=== PATIENT | female | born 1950 | race Caucasian/White ===

== ENCOUNTER → 2019-05-03 12:55 | Outpatient (BNVA) | payer MEDICARE, OTHER, SELFPAY | PROVIDERS: Family Provider Nurse Practitioner Family; PCP Nurse Practitioner Family; Referring Provider Nurse Practitioner Family; Visit Provider Internal Medicine Rheumatology | DX: L40.0 Psoriasis vulgaris (principal); L43.8 Other lichen planus | CPT/HCPCS: 99203; 99204 ==

== ENCOUNTER → 2019-07-12 09:09 | Outpatient (BNVA) | payer MEDICARE, OTHER, SELFPAY | PROVIDERS: Family Provider Nurse Practitioner Family; PCP Urology; Visit Provider Nurse Practitioner | DX: N39.0 Urinary tract infection, site not specified (principal); E03.9 Hypothyroidism, unspecified; R53.83 Other fatigue | CPT/HCPCS: 80053; 81001; 83540; 84439; 84443; 84481; 85025 ==

== ENCOUNTER → 2019-07-21 08:00 | Outpatient (BNVA) | payer MEDICARE, OTHER, SELFPAY | PROVIDERS: Family Provider Nurse Practitioner Family; PCP Urology; Visit Provider Nurse Practitioner Family | DX: N39.0 Urinary tract infection, site not specified (principal) | CPT/HCPCS: 80053; 81001; 87077; 87086; 87186 ==

== ENCOUNTER → 2019-08-09 15:11 | Outpatient (BNVA) | payer MEDICARE, OTHER, SELFPAY | PROVIDERS: Family Provider Nurse Practitioner Family; PCP Nurse Practitioner Family; Visit Provider Urology | DX: N39.0 Urinary tract infection, site not specified (principal) | CPT/HCPCS: 81001 ==

== ENCOUNTER 2019-09-08 08:41 | Outpatient (CLI) | payer MEDICARE, OTHER, SELFPAY ==
--- NOTE | 2019-09-08 08:55 | MM_ITS ---
WS: [id number] SCREENING DIGITAL MAMMOGRAM WITH CAD HISTORY: SCREENING COMPARISON: 01/05/2018 Bilateral CC and MLO views submitted. Computer aided detection analyzed. Breast composition: The breasts are almost entirely fatty. No suspicious masses, microcalcifications or architectural distortion. MM/[place] [id number] IMPRESSION: BI-RADS: 1-Negative FOLLOW UP: 1 Year Follow-up
== END 2019-09-08 08:42 | disposition home or self-care (01) ==
LOC: RADSHAW 08:46
PROVIDERS: PCP Nurse Practitioner Family; Visit Provider Nurse Practitioner Family
DX: Z12.31 Encounter for screening mammogram for malignant neoplasm of breast (principal)
CPT/HCPCS: 77067

== ENCOUNTER 2020-09-17 12:43 | Outpatient (CLI) | payer MEDICARE, OTHER, SELFPAY ==
--- NOTE | 2020-09-17 12:54 | MM_ITS ---
WS: [id number] BILATERAL DIGITAL SCREENING MAMMOGRAPHY WITH CAD CLINICAL INFORMATION: SCREEN HISTORY: Screening mammogram. No current complaints. COMPARISON: September 08, 2019 TECHNIQUE: Bilateral CC and MLO views. FINDINGS: Scattered fibroglandular densities bilaterally. No suspicious focal mass, asymmetry, calcifications, or architectural distortion. No evidence of malignancy. MM/[place] [id number] IMPRESSION: BI-RADS: 1-Negative FOLLOW UP: 1 Year Follow-up Recommend return to annual screening mammography.
--- NOTE | 2020-09-17 13:45 | XR_ITS ---
WS: [id number] DEXA (DUAL ENERGY X-RAY ABSORPTIOMETRY) Bone mineral density was performed using a Mocoplex machine. HISTORY: Asymptomatic MENOPAUSAL STATE COMPARISON: None available. Lumbar spine BMD (L1-L4): 1.124 g/cm2 T score: -0.5 Z score: 1.3 Total hip BMD: Left: 0.858 g/cm2. T score: -1.2 Z score: 0.3 Right: 0.841 g/cm2. T score: -1.3 Z score: 0.2 10 year probability of a major osteoporotic fracture is 10%. XR/XR DEXA axial skeleton* [id number] IMPRESSION: OSTEOPENIA based upon the WHO classification for females.
== END 2020-09-17 12:44 | disposition home or self-care (01) ==
LOC: RADSHAW 12:45
PROVIDERS: PCP Nurse Practitioner Family; Visit Provider Nurse Practitioner Family
DX: Z12.31 Encounter for screening mammogram for malignant neoplasm of breast (principal); Z78.0 Asymptomatic menopausal state; M85.88 Other specified disorders of bone density and structure, other site
CPT/HCPCS: 77067; 77080

== ENCOUNTER → 2021-06-13 11:41 | Outpatient (BNVA) | payer MEDICARE, OTHER, SELFPAY | PROVIDERS: PCP Nurse Practitioner Family; Visit Provider Surgery | DX: Z20.822 Contact with and (suspected) exposure to COVID-19 (principal) | CPT/HCPCS: 87635 ==

== ENCOUNTER 2021-06-20 06:27 | Day surgery (SDC) | payer MEDICARE, OTHER, SELFPAY ==
[2021-06-18 11:23] VITALS: BMI 23.0
--- NOTE | 2021-06-20 07:11 | P.ANESASSM_ITS ---
Pre-Anesthetic Assessment Height/Weight: Height 1.6 m Weight 58.967 kg Operation Date: 06/20/21 08:00 Proposed Procedures p Colonoscopy 67956/screebubg Z12.11(Not Applicable) - Pepito Raymond MD Familial anesthetic complications: None Was Beta Javier taken within 24 hours: N/A Was Clonidine taken within 24 hours: N/A Last intake: 06/19/2021 Social No alcohol and No tobacco Exam alert, oriented x 3, clear to auscultation bilaterally and regular rate & rhythm Airway Submandibular: within normal limits Cervical ROM: within normal limits Mallampati: Class II Dentition: full History/ROS No significant complaints Pulmonary None reported CV/HEM None reported Cystocele Hepatic None reported GI None reported Metabolic Thyroid Disease (Hypothyroid ) Musc/skel Plaque psoriasis Neuropsych None reported Anesthetic Plan ASA status: 2 Anesthesia: Anesthesia Evaluation, General and MAC Other: I discussed with the patient risks, goals, and benefits of MAC and general anesthesia. We discussed spectrum of MAC anesthesia including conversion to general as well as possibility of recall of intraoperative stimuli including discomfort/pain. Patient agrees to proceed with MAC. Risk of > 500 ml blood loss (7ml/kg in children): No Medications/Allergies Home Medications Medication Instructions Recorded Confirmed Last Taken Type betamethasone dipropionate 0.05 % 1 applic TOPICAL QDAY 05/03/19 06/18/21 Unknown History topical ointment biotin 5,000 mcg sublingual tablet 5,000 mcg SUBLINGUAL QDAY 05/03/19 06/18/21 Unknown History citalopram 40 mg tablet 40 mg PO QDAY 06/18/21 06/18/21 Unknown History cranberry conc 250 mg-vit C 30 1 tab PO DAILY 06/18/21 06/18/21 Unknown History mg-Bacillus coagulans 3.5 mg tablet ([facility]) levothyroxine 25 mcg tablet 37.5 mcg PO DAILY 06/18/21 06/18/21 Unknown History Allergies Allergy/AdvReac Type Severity Reaction Status Date / Time No Known Allergies Allergy Verified 06/20/21 07:11 [facility] Anesthesia Medical History Cystocele 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
[2021-06-20 07:14] VITALS: BP 142/86; PULSE 92; RESP 20; TEMP 36.6; O2SAT 96
[2021-06-20] MEDS: sodium chloride 0.9% 1,000 ML 30 ML IV (07:19)
--- NOTE | 2021-06-20 07:26 | P.HP_ITS ---
Same Day Surgery H&P Indication for Procedure/HPI DATE OF PROCEDURE: June 20, 2021 CHIEF COMPLAINT/INDICATIONFOR SURGICAL PROCEDURE: When I wipe there is blood PREOP DIAGNOSIS: Screening colonoscopy PLANNED PROCEDURE: Operation Date: 06/20/21 08:00 Proposed Procedures p Colonoscopy 81109/brian Z12.11(Not Applicable) - Pepito Raymond MD This is a pleasant 70-year-old female patient presents to my practice for repeat screening colonoscopy. Patient had twice this procedure before last one was 2005 and no polyps were found. Denies any history of colon cancer but she does report on wiping she does encounter some blood. And she is worried that she may have an anal cancer. Otherwise she denies any other constitutional complaints. ROS All systems have been reviewed negative except as per the above or per problem list Medications/Allergies* Home Medications Medication Instructions Recorded Confirmed Type betamethasone dipropionate 0.05 % 1 applic TOPICAL QDAY 05/03/19 06/18/21 History topical ointment biotin 5,000 mcg sublingual tablet 5,000 mcg SUBLINGUAL QDAY 05/03/19 06/18/21 History citalopram 40 mg tablet 40 mg PO QDAY 06/18/21 06/18/21 History cranberry conc 250 mg-vit C 30 1 tab PO DAILY 06/18/21 06/18/21 History mg-Bacillus coagulans 3.5 mg tablet ([facility]) levothyroxine 25 mcg tablet 37.5 mcg PO DAILY 06/18/21 06/18/21 History Allergies/Adverse Reactions Allergy/AdvReac Type Severity Reaction Status Date / Time No Known Allergies Allergy Verified 06/20/21 07:51 Current Medications: Generic Name Dose Route Start Last Admin Trade Name Freq PRN Reason Stop Dose Admin Sodium Chloride 1,000 mls @ 30 mls/hr 06/20/21 07:00 06/20/21 07:19 Sodium Chloride 0.9% IV 06/21/21 06:59 30 mls/hr .Q24H SEAN Administration Pertinent History/Comorbid Conditions* Medical History (Updated 07/14/19 @ 08:50 by DIMA Kidd) Cystocele 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 Hypercholesterolemia Hypothyroid Iron deficiency Labial lesion Mixed incontinence Plaque psoriasis Recurrent UTI Surgical History (Updated 07/14/19 @ 08:50 by DIMA Kidd) History of back surgery History of bladder repair surgery Family History (Updated 05/06/19 @ 16:59 by SETH Owens) Diabetes CAD (coronary artery disease) Chronic kidney disease (CKD) Cancer Stroke Social History Smoking and tobacco status: former smoker Alcohol intake: never Adopted: No Caregiver/support person: No Lives independently: No Household members: spouse Marital status: Current occupational status: unemployed History of recent travel: No Pertinent Exam Findings alert, oriented x 3, clear to auscultation bilaterally, regular rate & rhythm and procedure specific exam findings (Abdominal examination nontender nondistended soft) Recommendations Surgery/Procedure today (Screening colonoscopy) Other Plans: Plan of care; After thorough history and physical examination and reviewing the chart, plan to perform screening colonoscopy. I discussed with the patient in details the risks,benefits,alternatives and indications.The risk of aspiration, bleeding, soft tissue injury, perforation of the colon and other potential concomitant complications were explained to the patient in details,also the potential need for Laproscoy/Laparotomy to repair any related complications including but not limited to colectomy and or Closotomy.The patient understood this well and did agree to proceed. Rationale was carefully and clearly discussed with the patient.Appropriate informed consent have been reviewed and signed All questions have been answered and all concerns have been addressed to patient's satisfaction. Verbal and written Instructions were given to the patient for colonoscopy prep Coding Level of Care Code Acute Electrical Construction Project Manager for Sophie Coyle
[2021-06-20 08:18] VITALS: BP 109/78; PULSE 78; RESP 16; TEMP 36.4; O2SAT 98
[2021-06-20 08:36] VITALS: BP 142/86; PULSE 82; RESP 18; O2SAT 95
--- NOTE | 2021-06-20 12:31 | ANE.PACU2 ---
Inpatient post-anesthesia follow up: Airway intact: Yes Vital signs: Temperature 97.5 F Pulse Rate 82 Respiratory Rate 18 Blood Pressure 142/86 Pulse Oximetry 95 Oxygen Delivery Me thod Room Air Oxygen Flow Rate 4 Fraction of Inspir ed Oxygen Hydration adequate: Yes Nausea and vomiting: No Pain level: 1 Mental status: Baseline
== END 2021-06-20 08:50 | disposition home or self-care (01) ==
PROVIDERS: PCP Nurse Practitioner Family; Visit Provider Surgery
PROC: 0DJD8ZZ Inspection of Lower Intestinal Tract, Via Natural or Artificial Opening Endoscopic (ICD-10-PCS; CPT 45378; principal; 2021-06-20 08:00)
DX: K62.5 Hemorrhage of anus and rectum (principal); E78.00 Pure hypercholesterolemia, unspecified; E03.9 Hypothyroidism, unspecified; Z87.891 Personal history of nicotine dependence; D12.8 Benign neoplasm of rectum; K57.30 Diverticulosis of large intestine without perforation or abscess without bleeding
CPT/HCPCS: 45385; 88305; J2704; J7030

== ENCOUNTER 2021-07-23 08:27 | Outpatient (CLI) | payer MEDICARE, OTHER, SELFPAY ==
--- NOTE | 2021-07-23 08:52 | MM_ITS ---
WS: [id number] DIAGNOSTIC BILATERAL 3D TOMOSYNTHESIS DIGITAL MAMMOGRAM WITH CAD RIGHT breast ultrasound, limited HISTORY: Axillary pain, greatest on the RIGHT. COMPARISON: 09/17/2020 and 09/08/2019 TECHNIQUE: Bilateral craniocaudad, mediolateral oblique, and mediolateral views are submitted. Spot c ompression RIGHT MLO. Computer aided detection utilized. Breast composition: The breasts are almost entirely fatty. No suspicious masses or calcifications. No distortion. Marker in the area of pain and discomfort is placed towards the RIGHT axillary tail. RIGHT breast ultrasound, limited. Benign lymph nodes in the RIGHT axilla. No suspicious mass or distortion. MM/[place] [id number] IMPRESSION: BI-RADS: 2-Benign FOLLOW UP: 1 Year Follow-up
== END 2021-07-23 08:28 | disposition home or self-care (01) ==
LOC: RAD 08:31
PROVIDERS: PCP Nurse Practitioner Family; Visit Provider Nurse Practitioner Family
DX: M79.621 Pain in right upper arm (principal); M79.622 Pain in left upper arm
CPT/HCPCS: 76642; 77062

== ENCOUNTER 2021-07-31 13:30 | Outpatient (CLI) | payer MEDICARE, OTHER, SELFPAY ==
--- NOTE | 2021-07-31 13:41 | CT_ITS ---
WS: [id number] LDCT LUNG CANCER SCREENING TECHNIQUE: Noncontrast CT of the chest with coronal and sagittal reformatted images. CLINICAL INFORMATION: HX OF TOBACCO USE DLP: 77.59 mGy.cm DIvol: Mean CTDIvol: 1.60 (mGy) All CT scans at [facility] use at least one of these dose optimization techniques: automat ed exposure control; mA and/or kV adjustment per patient size (includes targeted exams where dose is matched to clinical indication); or iterative reconstruction. FINDINGS: Moderate chronic emphysematous changes. No acute pulmonary infiltrates. Bulla formation in the LEFT l ower lobe. Subsegmental atelectasis/fibrosis RIGHT lower lobe medially. No suspicious pulmonary paren chymal abnormalities. Normal thyroid gland. No mediastinal or hilar lymphadenopathy. Aortic calcification. Normal caliber t horacic aorta. Coronary calcification. Small esophageal hiatal hernia. No axillary lymphadenopathy. G allbladder wall calcification partially visualized. Calcified gallstone measuring 8 mm near the neck of the gallbladder appears similar to 2012. Gallbladder wall calcification can be seen with porcelain gallbladder and chronic cholecystitis. Gallbladder wall calcification progressed compared to 2012. Adrenal glands are normal. No axillary lymphadenopathy. Hypertrophic changes thoracic spine with disc osteophyte complexes in the mid thoracic spine. CT/CT lung screening [id number] IMPRESSION: Calcified gallbladder with 8 mm stone near the gallbladder neck. Ga llbladder wall calcification is progressed compared to 2012. This can be furthe r evaluated with CT abdomen pelvis. Gallbladder wall calcification has been ass ociated with increased risk of malignancy. LUNG-RADS: 1S-Negative with Significant Findings FOLLOW UP: 12 Month: Continue annual screening with LDCT
== END 2021-07-31 13:31 | disposition home or self-care (01) ==
LOC: RAD 13:31
PROVIDERS: PCP Nurse Practitioner Family; Visit Provider Nurse Practitioner Family
DX: R06.02 Shortness of breath (principal); R05.8 Other specified cough; Z80.1 Family history of malignant neoplasm of trachea, bronchus and lung; Z87.891 Personal history of nicotine dependence
CPT/HCPCS: 71271

== ENCOUNTER → 2021-08-21 14:32 | Outpatient (BNVA) | payer MEDICARE, OTHER, SELFPAY | PROVIDERS: PCP Nurse Practitioner Family; Referring Provider Nurse Practitioner Family; Visit Provider Surgery | DX: K80.20 Calculus of gallbladder without cholecystitis without obstruction (principal) | CPT/HCPCS: 99213 ==

== ENCOUNTER 2021-08-29 13:05 | Outpatient (CLI) | payer MEDICARE, OTHER, SELFPAY ==
[2021-08-29 13:28] LABS: Basophils # 0.1 10^3/uL (0.0-0.1); Basophils % 0.4 %; Eosinophils # 0.3 10^3/uL (0.0-0.8); Eosinophils % 2.4 %; Hematocrit 44.8 % (37.0-47.0); Hemoglobin 14.4 g/dL (11.5-15.3); Lymphocytes # 4.6 10^3/uL (0.8-4.8); Mean Corpuscular HGB Conc 32.1 g/dL (30.0-36.0); Mean Corpuscular Hemoglobin 30.1 pg (28.0-34.0); Mean Corpuscular Volume 93.7 fl (81-99); Mean Platelet Volume 10.2 fL (7.4-10.4); Monocytes # 0.8 10^3/uL (0.2-0.9); Monocytes % 6.7 %; Neutrophils # 6.53 10^3/uL (1.8-7.7); Neutrophils % 52.5 %; Nucleated Red Blood Cells % 0 %; Platelet Count 322 10^3/cmm (130-400); Red Blood Count 4.78 10^6/uL (4.1-5.3); Red Cell Distribution Width 12.4 % (12.1-15.1); White Blood Count 12.5 10^3/uL (4.0-10.0)
--- NOTE | 2021-08-29 13:30 | US_ITS ---
WS: [id number] RIGHT UPPER QUADRANT ULTRASOUND HISTORY: calcified gallbladder COMPARISON: None available. Liver: 13.3 cm in length. Normal size liver. Surface of the liver is irregular and nodular. No mass o r bile duct dilatation. Portal Vein: Normal hepatopetal flow with monophasic waveform. Gallbladder: Normally distended gallbladder. There is a moderate amount of calcification within the w all of the gallbladder. There is also a stone noted at the neck of the gallbladder. These findings we re also described on 07/31/2021 CT. No mobile stones are evident within the gallbladder. No gallbladde r wall thickening or edema. CBD: 0.3 cm Pancreas: Normal size and echogenicity. Right kidney: 8.8 cm in length. Normal size and echogenicity. No hydronephrosis or mass. Aorta and IVC: Unremarkable abdominal aorta and IVC. No ascites. US/US gall bladder [id number] IMPRESSION: 1. Partially calcified gallbladder wall with a stone near the gallbladder neck . These findings were also seen on the prior CT of 07/31/2021. At this time ther e is no evidence for acute cholecystitis or bile duct dilatation. 2. Cirrhosis.
[2021-08-29 13:48] LABS: Alanine Aminotransferase 31 U/L (0-33); Albumin Level 4.4 g/dL (3.5-5.2); Alkaline Phosphatase 55 IU/L (35-105); Anion Gap 13.5 (5-19); Aspartate Amino Transferase 30 U/L (0-32); Blood Urea Nitrogen 19 mg/dL (8-23); Calcium 9.3 mg/dL (8.5-10.5); Carbon Dioxide 28 mmol/L (22-29); Chloride 102 mmol/L (98-107); Globulin 3.5 g/dL (1.3-4.6); Glucose 84 mg/dL (65-115); Osmolality Calculated 289 mOsm/kg (285-295); Potassium 4.5 mmol/L (3.5-5.1); Sodium 139 mmol/L (136-145); Total Bilirubin 0.4 mg/dL (0.15-1.2); Total Protein 7.9 g/dL (6.6-8.7)
== END 2021-08-29 13:06 | disposition home or self-care (01) ==
LOC: RAD 13:08
PROVIDERS: PCP Nurse Practitioner Family; Visit Provider Surgery
DX: K82.8 Other specified diseases of gallbladder (principal); K82.9 Disease of gallbladder, unspecified; K80.80 Other cholelithiasis without obstruction
CPT/HCPCS: 76705; 80053; 85025

== ENCOUNTER → 2021-09-05 09:28 | Outpatient (BNVA) | payer MEDICARE, OTHER, SELFPAY | PROVIDERS: PCP Nurse Practitioner Family; Visit Provider Surgery | DX: D50.9 Iron deficiency anemia, unspecified (principal) | CPT/HCPCS: 85610; 85730 ==

== ENCOUNTER 2021-09-16 07:44 | Day surgery (SDC) | payer MEDICARE, OTHER, SELFPAY ==
[2021-09-13 11:03] VITALS: BMI 22.4
[2021-09-16] VITALS (14 sets, daily range): BP systolic 125–173; BP diastolic 57–91; PULSE 69–86; RESP 14–27; TEMP 36.3–37; O2SAT 92–100
[2021-09-16] MEDS: heparin 5,000 unit/mL INJ 1 mL 2000 UNIT SUBCUT (08:19)
[2021-09-16] MEDS: sodium chloride 0.9% 1,000 ML 30 ML IV (08:21)
[2021-09-16] MEDS: acetaminophen 1,000 MG/100 ML PIGGYBACK 400 MG IV (08:21)
--- NOTE | 2021-09-16 08:33 | P.ANESASSM_ITS ---
Pre-Anesthetic Assessment Height/Weight: Height 1.6 m Weight 57.606 kg Temp Pulse Resp BP Pulse Ox 97.4 F L 79 16 145/78 95 09/16/21 08:08 09/16/21 08:08 09/16/21 08:08 09/16/21 08:08 09/16/21 08:08 Preop Diagnosis: Symptomatic cholelithiasis Operation Date: 09/16/21 09:20 Proposed Procedures p Laparoscopic Cholecystectomy 66933/K82.9(Not Applicable) - Pepito Raymond MD Familial anesthetic complications: None Was Beta Javier taken within 24 hours: N/A Was Clonidine taken within 24 hours: N/A Last intake: Intake Last Liquid Date 09/15/21 Last Liquid Time 18:30 Last Solid Date 09/06/21 Social No alcohol and No tobacco Exam alert, oriented x 3, clear to auscultation bilaterally and regular rate & rhythm Airway Submandibular: within normal limits Cervical ROM: within normal limits Mallampati: Class II Dentition: partials CV/HEM Anemia Metabolic Thyroid Disease Anesthetic Plan ASA status: 2 Anesthesia: General Medications/Allergies Home Medications Medication Instructions Recorded Confirmed Last Taken Type citalopram 40 mg tablet 40 mg PO QDAY 06/18/21 09/16/21 09/15/21 History cranberry conc 250 mg-vit C 30 1 tab PO DAILY 06/18/21 09/16/21 09/15/21 History mg-Bacillus coagulans 3.5 mg tablet ([facility]) levothyroxine 25 mcg tablet 37.5 mcg PO DAILY 06/18/21 09/16/21 09/15/21 History Allergies Allergy/AdvReac Type Severity Reaction Status Date / Time No Known Allergies Allergy Verified 09/16/21 07:54 Current Medications Generic Name Dose Route Start Last Admin Trade Name Freq PRN Reason Stop Dose Admin Sodium Chloride 1,000 mls @ 30 mls/hr 09/16/21 08:00 09/16/21 08:21 Sodium Chloride 0.9% IV 09/17/21 07:59 30 mls/hr .Q24H SEAN Administration PFSH Anesthesia Medical History Cystocele 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
--- NOTE | 2021-09-16 08:38 | W.PM.OPSUD ---
Surgery/Procedure H&P Update DATE OF PROCEDURE: September 16, 2021 DATE H&P PERFORMED: 08/21/21 H&P UPDATE INFORMATION: I have reviewed H&P completed within last 30 days, I have examined patient prior to procedure and Changes to prior documentation as noted here (current weight 125 ibs) PREOP DIAGNOSIS: Symptomatic cholelithiasis PRIMARY INDICATION FOR PROCEDURE: The same PLANNED PROCEDURE: Operation Date: 09/16/21 09:20 Proposed Procedures p Laparoscopic Cholecystectomy 29171/K82.9(Not Applicable) - Pepito Raymond MD
[2021-09-16] MEDS: ampicillin-sulbactam 3 GM in sodium chloride 0.9% (plus) 50 ML IV (09:01)
[2021-09-16] MEDS: lidocaine 2% INJ 20 mL INJECTION (09:17)
--- NOTE | 2021-09-16 10:13 | PM.OP ---
Operative Report Date of procedure: September 16, 2021 Pre-op diagnosis: Preop Diagnosis Symptomatic cholelithiasis Post-op diagnosis: Chronic calculus cholecystitis Procedure done: Laparoscopic cholecystectomy Implants: Surgicel at the gallbladder fossa Specimens removed/disposition: Gallbladder and contents Surgeon: Pepito Raymond MD Gauge Machine Operator: Surgical luz maria Aguilar nurse Leah Anesthesia: General (floating derrick operator Page) Estimated blood loss (mL): 50 IV fluids (mL): 800 Procedure: Patient was identified in the holding area and taken back to the operative suite, placed in supine position intubated by anesthesia . Time-out was done verifying the patient's name/date of /planned procedure and destination after the procedure, all were in agreement. SCDs confirmed to be functioning, preoperative antibiotics administered per protocol, and beta claritza protocol was confirmed. Patient was appropriately secured to the table, footboard was applied to the OR table, before prep and drape anesthesia was asked to tilt the table back and forth to make sure that the patient is appropriately secured and she was. Prep and drape of the abdomen was done under the usual sterile technique, followed by that supraumbilical skin incision,skin incision was done by a 15 blade knife, and stay sutures were applied to the fascia and Wilson trocar technique was used to enter the abdominal without injuring any abdominal viscera, started by low flow gas insufflation followed by a high flow, started with a 10 mm laparoscope and under direct vision there was no evidence of any injuries, the scope then switched to a 30? ,10 millimeter scope and under direct visualization 5 millimeter trocar was inserted in the epigastric region followed by two 5 mm trocars were inserted in the right upper quadrant that was done after injection of local lidocaine 2% at all incision sites. Gallbladder showed chronic calculus cholecystitis and mild cirrhosis of the liver Patient was then positioned in the head up and tilted to the left. Ratcheted forceps were introduced into the lateral most 5mm port and was applied unto the fundus of the gallbladder cephalad and using Bullet forceps the infundibulum of the gallbladder was retracted laterally. Using [place] forceps then L-hook cautery to dissect the peritoneum overlying the Calot's triangle which was then opened medially and laterally until the cystic duct and the cystic artery were skeletonized. Dissection was carried along the body of the gallbladder and after ensuring critical view of safety was identfied. Cystic duct and cystic artery where seen connected to the gallbladder. Clips were applied on the cystic duct towards the common bile duct 1 towards the gallbladder then divided is in sharp scissors, 2 clips were then applied onto the cystic artery and 1 towards the gallbladder and divided by sharp scissors. Additional traversing vessel was clipped and divided. Dissection was then carried along of the gallbladder from the gallbladder fossa using cautery as well as sharp dissection with heat energy. The gallbladder then was dissected out from the gallbladder fossa totally , cholecystectomy was then achieved and was placed in an Endo Catch bag and then retrieved from the Wilson trocar site under direct visualization using a 5 mm 30? scope through the epigastric trocar, specimen was then passed to the circulating nurse to go for permanent pathology,irrigation and hemostasis was done to the gallbladder fossa after hemostasis was secured and then completed by application of Surgicel at the gallbladder fossa final survey laparoscopy was done that showed no injuries. Suction irrigation was obtained The supraumbilical fascial defect was then closed using interrupted number one PDS sutures using a fascial closure device ;Steven Cota under direct visualization,following that Gas was allowed to deflate,Trocars were then taken out under direct vision there was no evidence of bleeding. Specimen was passed to the circulating nurse for permanent pathology. No drains were placed and the supraumbilical incision as well as all trocar sites were closed by 3/0 Vicryl followed by 4-0 Monocryl to approximate the skin edges of the incisions , dressing was applied in the form of surical glue and the patient patient got extubated and was taken to recovery area in a stable condition. Count of sponges,needles and instruments were completed at the end of the procedure I was present for the whole entire procedure.
[2021-09-16] MEDS: fentaNYL 50 mcg/mL INJ 2mL IVP ×2 (10:37→10:55)
--- NOTE | 2021-09-16 10:46 | SUR.PHASEI ---
1027 PT TO PACU 5 PT AWAKES TO VOICE, PT MOANS RESTLESS, MONITOR SR NO ECTOPY, ID BAND TO LT WRIST PT ID'D WITH 2 IDENTIFIERS, IV TO RT WRIST #20 WITH NS 125 UP AT KVO RATE, ABDOMEN SOFT WITH 4 SITES TO ABDOMEN WITH SKIN GLUE ALL D/I BILAT SCDS ON .HOB AT 20 DEGREES. 1037 PT STILL C/O OF PAIN, MOANING, UNABLE TO GIVE NUMBER AT THIS TIME, SEE PAIN MED GIVEN SLOWLY IV PUSH FOR PAIN. 1048 PT SLEEPS IF NOT DISTURBED, MOANS OCCASIONALLY, BUT REMAINS VERY SLEEPY, VSS. ABDOMEN SOFT AND UNCHANGED.
--- NOTE | 2021-09-16 16:00 | ANE.PACU2 ---
Inpatient post-anesthesia follow up: Airway intact: Yes Vital signs: Temperature 97.9 F Pulse Rate 74 Respiratory Rate 14 Blood Pressure 125/57 Pulse Oximetry 92 Oxygen Delivery Me thod Room Air Oxygen Flow Rate 3 Fraction of Inspir ed Oxygen Hydration adequate: Yes Nausea and vomiting: No Pain level: 2 Mental status: Baseline
== END 2021-09-16 12:50 | disposition home or self-care (01) ==
PROVIDERS: PCP Nurse Practitioner Family; Visit Provider Surgery
PROC: 0FT44ZZ Resection of Gallbladder, Percutaneous Endoscopic Approach (ICD-10-PCS; CPT 47562; principal; 2021-09-16 09:10)
DX: K80.10 Calculus of gallbladder with chronic cholecystitis without obstruction (principal); E03.9 Hypothyroidism, unspecified; Z87.891 Personal history of nicotine dependence; Z79.52 Long term (current) use of systemic steroids
CPT/HCPCS: 47562; 88304; J0295; J0330; J1100; J1644; J2250; J2405; J2704; J2710; J3010; J3490; J7030

== ENCOUNTER → 2021-09-26 13:19 | Outpatient (BNVA) | payer MEDICARE, OTHER, SELFPAY | PROVIDERS: PCP Nurse Practitioner Family; Visit Provider Surgery | DX: Z09 Encounter for follow-up examination after completed treatment for conditions other than malignant neoplasm (principal) | CPT/HCPCS: 99024 ==

== ENCOUNTER 2022-09-11 08:06 | Outpatient (CLI) | payer MEDICARE, OTHER, SELFPAY ==
--- NOTE | 2022-09-11 08:45 | USCV_ITS ---
Aleshia Dexter Age: 71 Gender: F : 1950 Exam Date: 09/11/2022 08:32 Ordering Phys: Hayley Frausto NP Technologist: Ever Richards [place] [facility] [place]: Stenosis Risk Factors: Previous Vascular Surgery: Right Brachial BP: / Left Brachial BP: / Right Left Velocity (cm/s) Spectral Plaque Velocity (cm/s) Spectral Plaque Syst/Diast Broadening Syst/Diast Broadening 56.70/ 14.00 Prox CCA 62.40 / 15.60 69.90/ 17.10 Mid CCA 64.60 / 14.90 67.60/ 17.10 Distal CCA 72.40 / 20.60 114.70/26.50 Prox ICA 72.00 / 18.00 127.90/33.10 Mid ICA 91.00 / 27.00 110.30/17.60 Distal ICA 91.00 / 31.00 90.90 ECA 129.90 1.83 ICA/CCA 1.26 Antegrade Vertebral Antegrade 51.30/ 18.70 cm/s 51.00/ 8.00 cm/s Bi Subclavian Bi 78.00 105.0 0 CONCLUSIONS Right ICA stenosis <50%. Mild atheromatous plaque right carotid bulb/ICA. Left ICA stenosis <50%. Mild atheromatous plaque left carotid bulb/ICA. Intimal thickening Bilateral CCA's Normal antegrade Doppler flow noted in the right vertebral artery. Normal antegrade Doppler flow noted in the left vertebral artery. Simone Raymond MD (Electronically Signed) Final Date: 11 September 2022 17:55 S
== END 2022-09-11 08:07 | disposition home or self-care (01) ==
PROVIDERS: PCP Nurse Practitioner Family; Visit Provider Nurse Practitioner Family
DX: R09.89 Other specified symptoms and signs involving the circulatory and respiratory systems (principal); I65.23 Occlusion and stenosis of bilateral carotid arteries
CPT/HCPCS: 93880

== ENCOUNTER → 2022-12-02 08:44 | Outpatient (BNVA) | payer MEDICARE, OTHER, SELFPAY | PROVIDERS: PCP Nurse Practitioner Family; Visit Provider Surgery | DX: R13.10 Dysphagia, unspecified (principal); K21.9 Gastro-esophageal reflux disease without esophagitis | CPT/HCPCS: 99213 ==

== ENCOUNTER → 2022-12-10 12:39 | Outpatient (BNVA) | payer MEDICARE, OTHER, SELFPAY | PROVIDERS: PCP Nurse Practitioner Family; Visit Provider Internal Medicine | DX: E78.00 Pure hypercholesterolemia, unspecified (principal); R76.8 Other specified abnormal immunological findings in serum; L40.0 Psoriasis vulgaris; R53.1 Weakness | CPT/HCPCS: 36415; 73120; 80053; 82550; 82607; 83516; 84439; 84443; 85025; 85651; 86140; 86160; 86162; 86200; 86235; 86255; 86376; 86480; 86704; 86803; 87340; 99214 ==

== ENCOUNTER 2022-12-12 07:40 | Day surgery (SDC) | payer MEDICARE, OTHER, SELFPAY ==
[2022-12-10 14:27] VITALS: BMI 25.2
--- NOTE | 2022-12-12 08:21 | P.ANESASSM_ITS ---
Pre-Anesthetic Assessment Height/Weight: Height 1.57 m Weight 62.596 kg Operation Date: 12/12/22 08:45 Proposed Procedures p 36896 egd w/balloon dial R13.10,K21.9(Not Applicable) - Robi Pardo DO Familial anesthetic complications: None Was Beta Javier taken within 24 hours: N/A Was Clonidine taken within 24 hours: N/A Last intake: > 8hrs Social No alcohol and No tobacco Exam alert, oriented x 3, clear to auscultation bilaterally and regular rate & rhythm Airway Mallampati: Class II Dentition: partials GI Gastroesophageal Reflux Disease Metabolic Thyroid Disease Anesthetic Plan ASA status: 2 Anesthesia: MAC Risk of > 500 ml blood loss (7ml/kg in children): No Medications/Allergies Home Medications Medication Instructions Recorded Confirmed Last Taken Type citalopram 40 mg tablet 40 mg PO QDAY 06/18/21 12/10/22 12/11/22 History levothyroxine 25 mcg tablet 37.5 mcg PO DAILY 06/18/21 12/10/22 12/11/22 History pantoprazole 40 mg tablet,delayed 40 mg PO BID 6 weeks #84 tabs 12/02/22 12/10/22 12/11/22 Rx release (Protonix) amino acids 1 tab PO DAILY 12/12/22 12/12/22 12/11/22 History Allergies Allergy/AdvReac Type Severity Reaction Status Date / Time No Known Allergies Allergy Verified 12/10/22 14:26 [facility] Anesthesia Medical History (Updated 12/10/22 @ 13:25 by Renaldo Crum MD) SIXTO positive Cholelithiasis Colonic polyp Cystocele Diverticulosis large intestine w/o perforation or abscess w/bleeding 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 Hypercholesterolemia Hypothyroid Iron deficiency Labial lesion Mixed incontinence Plaque psoriasis Recurrent UTI Weakness Surgical History (Updated 12/02/22 @ 10:01 by Robi Pardo DO) History of back surgery History of bladder repair surgery History of laparoscopic cholecystectomy Hx of colonoscopy more than 5 years ago and no polyps found Family History Other CAD (coronary artery disease) Cancer Chronic kidney disease (CKD) Diabetes Stroke Social History Smoking and tobacco status: former smoker Alcohol intake: never Substance/Drug Use: never Adopted: No Caregiver/support person: No Lives independently: No Household members: spouse Marital status: Current occupational status: unemployed Data Anesthesia Cardiac Studies: No Data to Display
[2022-12-12 08:22] VITALS: BP 97/55; PULSE 66; RESP 18; TEMP 36.1; O2SAT 97
[2022-12-12] MEDS: sodium chloride 0.9% 1,000 ML 30 ML IV (08:27)
--- NOTE | 2022-12-12 09:05 | W.PM.OPSUD ---
Surgery/Procedure H&P Update DATE OF PROCEDURE: December 12, 2022 DATE H&P PERFORMED: 12/02/22 H&P UPDATE INFORMATION: I have reviewed H&P completed within last 30 days PLANNED PROCEDURE: Operation Date: 12/12/22 08:45 Proposed Procedures p 61443 egd w/balloon dial R13.10,K21.9(Not Applicable) - Robi Pardo DO
[2022-12-12 09:21] VITALS: BP 101/61; PULSE 63; RESP 20; TEMP 36.1; O2SAT 97
[2022-12-12 09:31] VITALS: BP 113/64; PULSE 61; RESP 18; O2SAT 99
[2022-12-12 09:37] VITALS: BP 104/68; PULSE 64; RESP 16; O2SAT 98
--- NOTE | 2022-12-12 09:55 | ANE.PACU2 ---
Inpatient post-anesthesia follow up: Airway intact: Yes Vital signs: Temperature 97 F Pulse Rate 64 Respiratory Rate 16 Blood Pressure 104/68 Pulse Oximetry 98 Oxygen Delivery Me thod Room Air Oxygen Flow Rate 3 Fraction of Inspir ed Oxygen Hydration adequate: Yes Nausea and vomiting: No Pain level: 1 Mental status: Baseline
== END 2022-12-12 09:55 | disposition home or self-care (01) ==
PROVIDERS: PCP Nurse Practitioner Family; Visit Provider Surgery
DX: R13.10 Dysphagia, unspecified (principal); K21.9 Gastro-esophageal reflux disease without esophagitis; K44.9 Diaphragmatic hernia without obstruction or gangrene; K29.70 Gastritis, unspecified, without bleeding; Z87.891 Personal history of nicotine dependence
CPT/HCPCS: 43239; 88305; 88342; J2704; J7030

== ENCOUNTER → 2023-01-07 10:54 | Outpatient (BNVA) | payer MEDICARE, OTHER, SELFPAY | PROVIDERS: PCP Nurse Practitioner Family; Visit Provider Internal Medicine | DX: R76.8 Other specified abnormal immunological findings in serum (principal); L40.0 Psoriasis vulgaris; R53.1 Weakness | CPT/HCPCS: 99214 ==

== ENCOUNTER → 2023-03-12 09:31 | Outpatient (BNVA) | payer MEDICARE, OTHER, SELFPAY | PROVIDERS: PCP Nurse Practitioner Family; Visit Provider Internal Medicine | DX: R76.8 Other specified abnormal immunological findings in serum (principal); L40.0 Psoriasis vulgaris; R53.1 Weakness | CPT/HCPCS: 99214 ==

== ENCOUNTER → 2023-07-20 11:43 | Outpatient (BNVA) | payer MEDICARE, OTHER, SELFPAY | PROVIDERS: PCP Nurse Practitioner Family; Visit Provider Internal Medicine Rheumatology | DX: L40.0 Psoriasis vulgaris (principal); R76.8 Other specified abnormal immunological findings in serum; Z79.899 Other long term (current) drug therapy; M81.0 Age-related osteoporosis without current pathological fracture | CPT/HCPCS: 36415; 80076; 82306; 82565; 85025; 86140; 99214 ==

== ENCOUNTER 2023-08-26 13:31 | Outpatient (CLI) | payer MEDICARE, OTHER, SELFPAY ==
--- NOTE | 2023-08-26 15:00 | XR_ITS ---
WS: [id number] DEXA (DUAL ENERGY X-RAY ABSORPTIOMETRY) Bone mineral density was performed using a Dakim machine. HISTORY: M81.0 - Age-related osteoporosis without current pathological fracture. COMPARISON: 09/17/2020 Lumbar spine BMD (L1-L4): 1.155 g/cm2 T score: -0.2 Z score: 1.6 Total hip BMD: Left: 0.857 g/cm2. T score: -1.2 Z score: 0.5 Right: 0.831 g/cm2. T score: -1.4 Z score: 0.3 10 year probability of a major osteoporotic fracture is 10.5%. Compared to the prior study from 09/17/2020. Lumbar spine bone mineral density has increased by 2.8%. Bilateral hips bone mineral density has decreased by 0.6%. XR/XR DEXA axial skeleton* [id number] IMPRESSION: OSTEOPENIA based upon the WHO classification for females. Significant increase in bone mineral density within the lumbar spine since the prior study. No significant change of the bone mineral density in the hips.
== END 2023-08-26 13:32 | disposition home or self-care (01) ==
PROVIDERS: PCP Nurse Practitioner Family; Visit Provider Internal Medicine Rheumatology
DX: M81.0 Age-related osteoporosis without current pathological fracture (principal); M85.80 Other specified disorders of bone density and structure, unspecified site
CPT/HCPCS: 77080

== ENCOUNTER → 2023-11-08 10:15 | Outpatient (BNVA) | payer MEDICARE, OTHER, SELFPAY | PROVIDERS: PCP Nurse Practitioner Family; Visit Provider Emergency Medicine | DX: R50.9 Fever, unspecified (principal) | CPT/HCPCS: 87426 ==

== ENCOUNTER → 2023-11-23 08:43 | Outpatient (BNVA) | payer MEDICARE, OTHER, SELFPAY | PROVIDERS: PCP Nurse Practitioner Family; Visit Provider Nurse Practitioner Family | DX: E03.9 Hypothyroidism, unspecified (principal); D64.9 Anemia, unspecified; E61.1 Iron deficiency; E78.00 Pure hypercholesterolemia, unspecified | CPT/HCPCS: 80053; 81003; 82607; 82728; 83036; 83550; 84443; 85025 ==

== ENCOUNTER → 2024-01-11 13:33 | Outpatient (BNVA) | payer MEDICARE, OTHER, SELFPAY | PROVIDERS: PCP Nurse Practitioner Family; Visit Provider Nurse Practitioner Family | DX: N39.0 Urinary tract infection, site not specified (principal) | CPT/HCPCS: 81003; 87086 ==

== ENCOUNTER 2024-01-22 08:09 | Outpatient (CLI) | payer MEDICARE, OTHER, SELFPAY ==
[2024-01-22 08:26] LABS: Basophils % 0.3 %; Eosinophils # 0.4 10^3/uL (0.0-0.8); Eosinophils % 5.3 %; Hematocrit 41.7 % (36-47); Lymphocytes # 1.8 10^3/uL (0.8-4.8); Lymphocytes % 26.3 %; Mean Corpuscular HGB Conc 32.4 g/dL (30-55); Mean Corpuscular Hemoglobin 29.8 pg (27-33); Mean Corpuscular Volume 92.1 fl (85-98); Mean Platelet Volume 9.7 fL (7.4-10.4); Monocytes # 0.6 10^3/uL (0.2-0.9); Monocytes % 9.1 %; Neutrophils # 4.06 10^3/uL (1.8-7.7); Neutrophils % 58.4 %; Nucleated Red Blood Cells % 0 %; Platelet Count 251 10^3/cmm (157-399); Red Blood Count 4.53 10^6/uL (3.85-5.65); Red Cell Distribution Width 12.5 % (12.1-15.1); White Blood Count 6.95 10^3/uL (3.29-11.43)
[2024-01-22 08:50] LABS: Alanine Aminotransferase 12 U/L (0-33); Albumin Level 4.2 g/dL (3.5-5.2); Alkaline Phosphatase 62 U/L (35-105); Aspartate Amino Transferase 16 U/L (0-32); Creatinine Clr Calc Pharmacy 55.5819; Globulin 3.1 g/dL (1.3-4.6); Total Bilirubin 0.3 mg/dL (0.15-1.2); Total Protein 7.3 g/dL (6.6-8.7)
--- NOTE | 2024-01-22 10:15 | MR_ITS ---
WS: [id number] MRI HEAD WITH CONTRAST TECHNIQUE: Sagittal T1, T2 axial, T2 axial FLAIR, axial susceptibility weighted imaging, axial diffus ion weighted images, and coronal T2 images were obtained. Pre and post-T1 axial and post T1 coronal i mages. ADC and FSPGR images. CLINICAL INFORMATION: H53.9 - Unspecified visual disturbance COMPARISON: MRI 2019 FINDINGS: Moderate small vessel changes. Mild parenchymal volume loss. Small amount of increased diffusion sign al in the RIGHT frontal parietal junction may present a tiny amount of acute to subacute ischemia jeaneth lynnette artifact. Otherwise no evidence of acute ischemia. Normal posterior fossa. Normal vascular flow voids at the skull base. No extra-axial fluid collection s. No evidence of mass or mass effect. Paranasal sinuses are well aerated. LEFT mastoid effusion. RIG HT mastoid air cells are well aerated. Normal posterior nasopharynx. No hemosiderin on the susceptibl y weighted images. Normal optic chiasma pituitary infundibulum. Temporal lobes and hippocampal format ions are normal in appearance. Prominent enhancement of the optic nerves and optic nerve sheaths bilaterally on the fat-saturated im ages is nonspecific but can be seen with optic neuritis in the appropriate clinical setting. Recommen d correlation with bilateral visual symptoms. MR/MR head wo/w con [id number] IMPRESSION: 1. Prominent enhancement of the optic nerves and optic nerve sheaths bilateral ly can be seen with optic neuritis. Recommend clinical correlation with visual symptoms. 2. Normal optic chiasm and pituitary infundibulum. 3. Moderate small vessel changes with mild parenchymal volume loss progressed compared to previous. 4. Tiny amount of T2 shine through artifact or less likely a tiny amount of ac [place] to subacute ischemia in the RIGHT posterior frontal lobe. 5. LEFT mastoid effusion. 6. No other acute findings.
[2024-01-22] MEDS: gadobenate dimeglumine 20 mL vial 13 ML IV (10:51)
== END 2024-01-22 08:10 | disposition home or self-care (01) ==
PROVIDERS: Internal Medicine Rheumatology; PCP Nurse Practitioner Family; Visit Provider Nurse Practitioner Family
DX: H53.9 Unspecified visual disturbance (principal); R51.9 Headache, unspecified; W19.XXXA Unspecified fall, initial encounter; Y92.009 Unspecified place in unspecified non-institutional (private) residence as the place of occurrence of the external cause; L40.0 Psoriasis vulgaris; R76.8 Other specified abnormal immunological findings in serum; G31.89 Other specified degenerative diseases of nervous system; H46.9 Unspecified optic neuritis; H74.8X2 Other specified disorders of left middle ear and mastoid
CPT/HCPCS: 36415; 70553; 80076; 82565; 85025; 86140

== ENCOUNTER → 2024-02-09 10:39 | Outpatient (BNVA) | payer MEDICARE, OTHER, SELFPAY | PROVIDERS: PCP Nurse Practitioner Family; Visit Provider Internal Medicine Rheumatology | DX: R76.8 Other specified abnormal immunological findings in serum (principal); L40.0 Psoriasis vulgaris | CPT/HCPCS: 99214 ==

== ENCOUNTER → 2024-03-22 07:57 | Outpatient (BNVA) | payer MEDICARE, OTHER, SELFPAY | PROVIDERS: PCP Nurse Practitioner Family; Referring Provider Nurse Practitioner Family; Visit Provider Psychiatry & Neurology Neurology | DX: R41.3 Other amnesia (principal); G44.329 Chronic post-traumatic headache, not intractable; R53.1 Weakness; R90.89 Other abnormal findings on diagnostic imaging of central nervous system; D64.9 Anemia, unspecified; G44.81 Hypnic headache | CPT/HCPCS: 36415; 82542; 83520; 99203 ==

== ENCOUNTER 2024-03-31 14:59 | Outpatient (CLI) | payer MEDICARE, OTHER, SELFPAY ==
--- NOTE | 2024-03-31 15:15 | MR_ITS ---
WS: [email or web address] MRA CAROTID WITHOUT AND WITH GADOLINIUM ENHANCEMENT TECHNIQUE: Axial 2-D TOF and gadolinium bolus images obtained with axial images and axial, sagittal, and coronal 2-D reformatted images. CLINICAL INFORMATION: R41.3 - Other amnesia COMPARISON: CTA 2019 FINDINGS: RIGHT: RIGHT common carotid artery is patent. Irregular atheromatous plaque RIGHT carotid bulb extend ing into the ICA with approximately 50% stenosis. RIGHT ICA is patent to the skull base. Moderate tiffanie cified atheromatous plaque carotid bulb. LEFT: LEFT common carotid artery is patent. No significant LEFT ICA stenosis. LEFT ICA is patent to t he skull base. Moderate calcified atheromatous plaque carotid bulb RIGHT dominant vertebral artery. Smaller but patent LEFT vertebral artery MR/MR angio neck w con* [id number] IMPRESSION: 1. Approximately 50% RIGHT ICA stenosis. RIGHT ICA is patent to the skull base . Moderate atheromatous plaque RIGHT carotid bulb extending into the ICA. 2. No significant LEFT ICA stenosis. LEFT ICA is patent to the skull base. 3. RIGHT dominant vertebral artery. Smaller but patent LEFT vertebral artery.
[2024-03-31] MEDS: gadobenate dimeglumine 20 mL vial IV (15:29)
--- NOTE | 2024-03-31 16:00 | MR_ITS ---
WS: [email or web address] MRA HEAD TECHNIQUE: Axial 3-D TOF images obtained with axial images and axial, sagittal, and coronal 2-D refor matted images. CLINICAL INFORMATION: R41.3 - Other amnesia COMPARISON: MRI 01/22/2024 FINDINGS: Basilar artery is patent. Normal vascularity to the [employer] territory bilaterally. Both ICAs are patent at the skull base. Normal vascularity to the IVAN and MCA territories bilaterally . No evidence of proximal high-grade stenosis or aneurysm. LEFT mastoid effusion. MR/MR angio head con [id number] IMPRESSION: Normal intracranial MRA.
== END 2024-03-31 15:00 | disposition home or self-care (01) ==
LOC: RAD 15:00
PROVIDERS: PCP Nurse Practitioner Family; Visit Provider Psychiatry & Neurology Neurology
DX: R41.3 Other amnesia (principal); I65.21 Occlusion and stenosis of right carotid artery; G44.329 Chronic post-traumatic headache, not intractable; D64.9 Anemia, unspecified; R53.1 Weakness; G93.6 Cerebral edema
CPT/HCPCS: 70544; 70548

== ENCOUNTER → 2024-04-07 11:42 | Outpatient (BNVA) | payer MEDICARE, OTHER, SELFPAY | PROVIDERS: PCP Nurse Practitioner Family; Visit Provider Nurse Practitioner Family | DX: N39.0 Urinary tract infection, site not specified (principal) | CPT/HCPCS: 81003 ==

== ENCOUNTER 2024-05-11 13:21 | Outpatient (CLI) | payer MEDICARE, OTHER, SELFPAY ==
--- NOTE | 2024-05-11 13:20 | MM_ITS ---
WS: [email or web address] Bilateral screening 3D tomosynthesis digital mammogram, 05/11/2024 1:26 PM Clinical Data: Z12.31 - Encounter for screening mammogram for malignant ... Comparison: 07/23/2021, 09/17/2020, 09/08/2019, 01/05/2018, 11/17/2016, 07/13/2013, 04/14/2012, 02/06/2011. Findings: No spiculated masses or clustered calcifications are seen. There are no secondary signs of carcinoma. MM/MM [facility] tomosynthesis [id number] Impression: Negative bilateral mammogram unchanged. Recommend annual screening mammograms. BIRADS: 1 - Negative. FOLLOW UP: 1 Year Follow-up DENSITY: The breasts are almost entirely fatty. The CAD case checker was used
== END 2024-05-11 13:22 | disposition home or self-care (01) ==
PROVIDERS: PCP Nurse Practitioner Family; Visit Provider Nurse Practitioner Family
DX: Z12.31 Encounter for screening mammogram for malignant neoplasm of breast (principal); R92.313 Mammographic fatty tissue density, bilateral breasts
CPT/HCPCS: 77063; 77067

== ENCOUNTER → 2024-07-12 10:28 | Outpatient (BNVA) | payer MEDICARE, OTHER, SELFPAY | PROVIDERS: PCP Nurse Practitioner Family; Visit Provider Internal Medicine Rheumatology | DX: R76.8 Other specified abnormal immunological findings in serum (principal); L40.0 Psoriasis vulgaris | CPT/HCPCS: 36415; 80076; 82085; 82306; 82550; 82565; 84439; 84443; 85025; 85651; 86140; 99214 ==

== ENCOUNTER 2024-07-28 10:51 | Outpatient (CLI) | payer MEDICARE, OTHER, SELFPAY ==
[2024-07-28 11:32] LABS: Alanine Aminotransferase 114 U/L (0-33); Albumin Level 4.4 g/dL (3.5-5.2); Alkaline Phosphatase 65 U/L (35-105); Aspartate Amino Transferase 93 U/L (0-32); Globulin 3.6 g/dL (1.3-4.6); Total Bilirubin 0.4 mg/dL (0.15-1.2)
== END 2024-07-28 10:52 | disposition home or self-care (01) ==
LOC: LAB 10:55
PROVIDERS: PCP Nurse Practitioner Family; Visit Provider Internal Medicine Rheumatology
DX: R74.8 Abnormal levels of other serum enzymes (principal)
CPT/HCPCS: 36415; 80076

== ENCOUNTER → 2024-08-22 09:23 | Outpatient (BNVA) | payer MEDICARE, OTHER, SELFPAY | PROVIDERS: PCP Nurse Practitioner Family; Visit Provider Nurse Practitioner Family | DX: E03.9 Hypothyroidism, unspecified (principal); E78.00 Pure hypercholesterolemia, unspecified; R74.8 Abnormal levels of other serum enzymes; K74.60 Unspecified cirrhosis of liver; E61.1 Iron deficiency; Z79.899 Other long term (current) drug therapy; L40.0 Psoriasis vulgaris; M62.81 Muscle weakness (generalized); Z78.9 Other specified health status | CPT/HCPCS: 80053; 80061; 81003; 82550; 82728; 83036; 83735; 84439; 84443; 85025; 85651 ==

== ENCOUNTER 2024-08-23 07:32 | Outpatient (CLI) | payer MEDICARE, OTHER, SELFPAY ==
--- NOTE | 2024-08-23 07:45 | US_ITS ---
WS: [email or web address] RIGHT UPPER QUADRANT ULTRASOUND HISTORY: K74.60 - Unspecified cirrhosis of liver COMPARISON: 08/29/2021 Liver: 11.3 cm in length. Normal size liver and echogenicity. No bile duct dilatation or mass. Very slight surface nodularity of the liver is similar to the prior study. Portal Vein: Normal hepatopetal flow with monophasic waveform. Gallbladder: Prior cholecystectomy. CBD: 0.5 cm Pancreas: Normal size and echogenicity. Right kidney: 9.6 cm in length. Normal size and echogenicity. No hydronephrosis or mass. Aorta and IVC: Unremarkable abdominal aorta and IVC. No ascites. US/US liver [id number] IMPRESSION: 1. Early changes of cirrhosis, similar to the study from 08/29/2021. 2. Prior cholecystectomy.
== END 2024-08-23 07:33 | disposition home or self-care (01) ==
PROVIDERS: PCP Nurse Practitioner Family; Visit Provider Nurse Practitioner Family
DX: K74.60 Unspecified cirrhosis of liver (principal); R74.8 Abnormal levels of other serum enzymes; Z90.49 Acquired absence of other specified parts of digestive tract
CPT/HCPCS: 76705

== ENCOUNTER → 2024-09-09 10:29 | Outpatient (BNVA) | payer MEDICARE, OTHER, SELFPAY | PROVIDERS: PCP Nurse Practitioner Family; Visit Provider Nurse Practitioner Family | DX: N39.0 Urinary tract infection, site not specified (principal) | CPT/HCPCS: 81003; 87077; 87086; 87184 ==

== ENCOUNTER → 2024-12-29 10:15 | Outpatient (BNVA) | payer MEDICARE, OTHER, SELFPAY | PROVIDERS: PCP Nurse Practitioner Family; Visit Provider Nurse Practitioner Family | DX: E78.00 Pure hypercholesterolemia, unspecified (principal); E03.9 Hypothyroidism, unspecified | CPT/HCPCS: 84439; 84443; 84481 ==

== ENCOUNTER 2025-01-10 10:46 | Outpatient (CLI) | payer MEDICARE, OTHER, SELFPAY ==
--- NOTE | 2025-01-10 10:15 | US_ITS ---
WS: [email or web address] THYROID ULTRASOUND HISTORY: E03.9 - Hypothyroidism, unspecified COMPARISON: None available. Right lobe: 2.2 cm x 1.7 cm x 4.5 cm (w x ap x l). Volume: 8.1 cm3. Normal size and echotexture. No significant are dominant nodules are present. Tiny colloid cyst 2 mm inferior RIGHT thyroid. Left lobe: 1.6 cm x 1.6 cm x 5.2 cm (w x ap x l). Volume: 6.4 cm3. Normal size and echotexture. No significant or dominant nodules are present. Isthmus: 0.3 cm. US/US thyroid [id number] IMPRESSION: 1. TI-RADS 2; no suspicious thyroid nodules or FNA recommended. No follow-up n ecessary. 2. Normal sized thyroid with no suspicious nodules.
== END 2025-01-10 10:47 | disposition home or self-care (01) ==
LOC: RAD 10:47
PROVIDERS: PCP Nurse Practitioner Family; Visit Provider Nurse Practitioner Family
DX: E03.9 Hypothyroidism, unspecified (principal)
CPT/HCPCS: 76536

== ENCOUNTER 2025-02-15 13:21 | Outpatient (CLI) | payer MEDICARE, OTHER, SELFPAY ==
--- NOTE | 2025-02-15 13:45 | MR_ITS ---
WS: [email or web address] MRI HEAD WITH CONTRAST TECHNIQUE: Sagittal T1, T2 axial, T2 axial FLAIR, axial susceptibility weighted imaging, axial diffusion weighted images, and coronal T2 images were obtained. Pre and post-T1 axial and post T1 coronal images. ADC and FSPGR images. CLINICAL INFORMATION: G44.329 - Chronic post-traumatic headache, not intractable COMPARISON: MRI 2023 FINDINGS: No evidence of restricted diffusion to suggest acute ischemia. Small amount of T2 shine through in the RIGHT posterior frontal lobe stable compared to previous. Moderate small vessel changes. Mild parenchymal volume loss. Normal posterior fossa. Normal vascular flow voids at the skull base. No extra- axial fluid collections. No evidence of mass or mass effect. Paranasal sinuses are well aerated. Chronic LEFT mastoid effusion. RIGHT mastoid air cells are well aerated. Normal posterior nasopharynx. No hemosiderin on the susceptibly weighted images. Normal optic chiasm and pituitary infundibulum. Temporal lobes and hippocampal formations are normal in appearance. No abnormal gadolinium enhancement. Dural venous sinuses appear patent. MR/MR head wo/w con [id number] IMPRESSION: 1. No evidence of restricted diffusion to suggest acute ischemia. 2. Moderate small vessel changes. Mild parenchymal volume loss. 3. No other acute findings or changes from previous
[2025-02-15] MEDS: gadobenate dimeglumine 20 mL vial IV (14:23)
== END 2025-02-15 13:22 | disposition home or self-care (01) ==
LOC: RAD 13:21
PROVIDERS: PCP Nurse Practitioner Family; Visit Provider Nurse Practitioner Family
DX: G44.329 Chronic post-traumatic headache, not intractable (principal); G31.84 Mild cognitive impairment of uncertain or unknown etiology; R90.89 Other abnormal findings on diagnostic imaging of central nervous system
CPT/HCPCS: 70553

== ENCOUNTER → 2025-03-21 09:35 | Outpatient (BNVA) | payer MEDICARE, OTHER, SELFPAY | PROVIDERS: PCP Nurse Practitioner Family; Visit Provider Nurse Practitioner Family | DX: N89.8 Other specified noninflammatory disorders of vagina (principal) | CPT/HCPCS: 87070; 87205 ==